=== PATIENT | female | born 1945 | race Caucasian/White ===

== ENCOUNTER 2025-02-26 08:18 | Inpatient (IN) | payer MEDICARE, OTHER ==
[~2025-02-26] VITALS: Ht 165.1 cm; Wt 62.8 kg
[2025-02-26 09:07] LABS: BASOPHILS # (AUTO) 0.1 K/UL (0.0-0.2); BASOPHILS % (AUTO) 0.7 % (0.0-2.0); DIFFERENTIAL COMMENT 1; EOSINOPHILS # (AUTO) 0.2 K/uL (0.0-0.7); EOSINOPHILS % (AUTO) 1.8 % (0.0-7.0); HEMATOCRIT 38.9 % (31.2-41.9); HEMOGLOBIN 12.9 g/dL (10.9-14.3); LYMPHOCYTES # (AUTO) 1.6 K/uL (0.8-4.8); LYMPHOCYTES % (AUTO) 16.3 % (20.5-51.5); MEAN CORPUSCULAR HEMOGLOBIN 30.1 uug (24.7-32.8); MEAN CORPUSCULAR HGB CONC 33 g/dL (32.3-35.6); MEAN CORPUSCULAR VOLUME 90.5 fL (75.5-95.3); MONOCYTES # (AUTO) 0.6 K/uL (0.1-1.30); MONOCYTES % (AUTO) 5.8 % (0.0-11.0); NEUTROPHILS # (AUTO) 7.4 K/uL (1.8-8.9); NEUTROPHILS % (AUTO) 75.4 % (38.5-71.5); PLATELET COUNT (AUTO) 157 K/uL (179-408); RED CELL DISTRIBUTION WIDTH 16.2 % (12.3-17.7); WHITE BLOOD COUNT (AUTO) 9.8 K/uL (3.8-11.8)
[2025-02-26 09:16] LABS: CALCIUM 9.8 mg/dL (8.5-10.1); CARBON DIOXIDE 29 mmol/L (21-32); CHLORIDE 102 mmol/L (98-107); CREATININE 0.4 mg/dL (0.6-1.3); GLUCOSE 95 mg/dL (74-106); POTASSIUM 3.9 mmol/L (3.5-5.1); SODIUM SERUM 139 mmol/L (136-145); UREA NITROGEN, BLOOD 14 mg/dL (7-18)
[2025-02-26 09:22] LABS: ALANINE AMINOTRANSFERASE 13 U/L (14-59); ALBUMIN 2.5 g/dL (3.4-5.0); ALKALINE PHOSPHATASE 73 U/L (50-136); ASPARTATE AMINOTRANSFERASE 13 U/L (15-37); BILIRUBIN,DIRECT 0.2 mg/dL (0.0-0.2); BILIRUBIN,TOTAL 0.6 mg/dL (0.2-1.0); TOTAL PROTEIN, SERUM 6.6 g/dL (6.4-8.2)
[2025-02-26 09:23] LABS: *BILIRUBIN,URIN NEGATIVE (NEGATIVE); *CLARITY,URINE SLIGHTLY CLOUDY (CLEAR); *COLOR,URINE YELLOW (YELLOW); *KETONES,URINE NEGATIVE (NEGATIVE); *PROTEIN,URINE 1+ (NEGATIVE); *UROBILINOGEN,URINE 0.2 E.U./dl (NORMAL); LEUKOCYTE ESTERASE ,URINE 1+ (NEGATIVE); NITRITE, URINE NEGATIVE (NEGATIVE); PH,URINE 5.5 (5.0-8.0); UGLUCOSE TRACE (NEGATIVE)
[2025-02-26 09:24] LABS: *BLOOD, URINE TRACE (NEGATIVE)
[2025-02-26 09:26] LABS: BACTERIA,URINE FEW /HPF (NONE SEEN); RBC,URINE 0-3 /HPF (0-3); SQUAMOUS EPITHELIAL CELL,UR FEW /HPF (NONE SEEN)
[2025-02-26] MEDS ORDERED: CEFTRIAXONE /D5W 50ML IVPB **ER PYXIS IV ONE (09:46)
[2025-02-26] MEDS: CEFTRIAXONE 1 G in IV DEXTROSE 5% 50 ML IV ONE (09:51)
[2025-02-26] MEDS ORDERED: ONDANSETRON 4 MG/2 ML VIAL IV PRN (11:30)
[2025-02-26] MEDS ORDERED: REMEDY ESSENTIAL ZINC PASTE 113 GM TP PRN (11:30)
[2025-02-26] MEDS: IV NS 1000 ML 1,000 ML IV ONE (11:39)
[2025-02-26] MEDS ORDERED: LEVO88TA5 PO (11:46)
[2025-02-26] MEDS ORDERED: ATOR20TA PO (11:47)
[2025-02-26] MEDS ORDERED: LOPE2CAP40 PO (11:47)
[2025-02-26] MEDS ORDERED: PANT20TA2 PO (11:47)
[2025-02-26] MEDS ORDERED: PREG75CA76 PO (11:47)
[2025-02-26] MEDS ORDERED: BACL20TA PO (11:47)
[2025-02-26] MEDS ORDERED: FLUT16SP BNOSTRILS (11:47)
[2025-02-26] MEDS ORDERED: ACET325C7 PO (11:47)
[2025-02-26] MEDS ORDERED: CHOL2000 PO (11:47)
[2025-02-26] MEDS ORDERED: MAG-55 PO (11:47)
[2025-02-26] MEDS ORDERED: TRAM50TA2 PO (11:47)
[2025-02-26] MEDS ORDERED: MAG-5 PO (11:47)
[2025-02-26] MEDS ORDERED: ESCI-9 PO (11:47)
[2025-02-26] MEDS ORDERED: CARV3.122 PO (11:47)
[2025-02-26] MEDS ORDERED: DIGO125T PO (11:47)
[2025-02-26] MEDS ORDERED: ONDA4TAB11 SL (11:47)
[2025-02-26] MEDS ORDERED: CRAN450T9 PO (11:47)
[2025-02-26] MEDS ORDERED: BISM262O28 PO (11:47)
[2025-02-26] MEDS ORDERED: CYAN-10 IM (11:47)
[2025-02-26] MEDS ORDERED: PREG225C7 PO (11:47)
[2025-02-26] MEDS ORDERED: DIPH25CA83 PO (11:47)
[2025-02-26] MEDS ORDERED: MAG30ORA PO (11:47)
[2025-02-26 12:31] VITALS: BP 127/59; TEMP 97.8; O2SAT 95
[2025-02-26] MEDS ORDERED: Medication Not On Formulary EA (Mag Hydrox/Al Hydrox/Simeth (Maalox Advanced Max-Str Sus PO SCH (12:45)
[2025-02-26] MEDS ORDERED: AZITHROMYCIN IV 500 MG in IV DEXTROSE 5% 250 ML IV SCH (13:15)
[2025-02-26] MEDS ORDERED: Medication Not On Formulary EA (Acetaminophen (Tylenol) 650 MG) PO SCH (13:30)
[2025-02-26] MEDS: DOXYCYCLINE HYCLATE IV 100 MG in IV DEXTROSE 5% 100 ML IV SCH (14:25)
[2025-02-26] MEDS ORDERED: ONDANSETRON ODT 4 MG TAB.RAPDIS SL PRN (15:30)
[2025-02-26 16:13] VITALS: BP 122/68; TEMP 97.9; O2SAT 94
[2025-02-26] MEDS ORDERED: Medication Not On Formulary EA (Cranberry Fruit (Cranberry) 450 MG) PO SCH (17:00)
[2025-02-26 19:13] VITALS: BP 144/80; TEMP 98; O2SAT 98
[2025-02-26] MEDS: IV NS 1000 ML 1,000 ML IV PRN (20:05)
[2025-02-26] MEDS: ATORVASTATIN 20 MG TABLET PO SCH (21:03)
[2025-02-26] MEDS: BACLOFEN 20 MG TABLET PO SCH (21:03)
[2025-02-26] MEDS: CARVEDILOL 3.125 MG TABLET PO SCH (21:04)
[2025-02-26] MEDS: ENOXAPARIN SODIUM 40 MG/0.4 ML DISP.SYRIN SQ SCH (21:06)
[2025-02-26] MEDS: FLUTICASONE PROP NASAL SPRAY 16 GM BOTTLE NS SCH (21:11)
[2025-02-27 05:37] VITALS: BP 105/66; TEMP 97.9; O2SAT 100
[2025-02-27] MEDS: LEVOTHYROXINE SODIUM 88 MCG TABLET PO SCH (06:00)
[2025-02-27] MEDS: PANTOPRAZOLE SODIUM 40 MG TABLET.DR PO SCH (06:39)
[2025-02-27 06:50] LABS: BASOPHILS # (AUTO) 0.1 K/UL (0.0-0.2); BASOPHILS % (AUTO) 0.6 % (0.0-2.0); EOSINOPHILS # (AUTO) 0.1 K/uL (0.0-0.7); EOSINOPHILS % (AUTO) 1.2 % (0.0-7.0); HEMATOCRIT 35.5 % (31.2-41.9); LYMPHOCYTES # (AUTO) 1.9 K/uL (0.8-4.8); LYMPHOCYTES % (AUTO) 23.2 % (20.5-51.5); MEAN CORPUSCULAR HEMOGLOBIN 29.9 uug (24.7-32.8); MEAN CORPUSCULAR HGB CONC 34 g/dL (32.3-35.6); MEAN CORPUSCULAR VOLUME 88.3 fL (75.5-95.3); MONOCYTES # (AUTO) 0.7 K/uL (0.1-1.30); MONOCYTES % (AUTO) 8.2 % (0.0-11.0); NEUTROPHILS # (AUTO) 5.6 K/uL (1.8-8.9); NEUTROPHILS % (AUTO) 66.8 % (38.5-71.5); PLATELET COUNT (AUTO) 246 K/uL (179-408); RED BLOOD CELL COUNT(AUTO) 4.02 MIL/uL (3.63-4.92); RED CELL DISTRIBUTION WIDTH 15.7 % (12.3-17.7); WHITE BLOOD COUNT (AUTO) 8.4 K/uL (3.8-11.8)
[2025-02-27 07:02] LABS: CARBON DIOXIDE 28 mmol/L (21-32); CHLORIDE 106 mmol/L (98-107); SODIUM SERUM 142 mmol/L (136-145)
[2025-02-27 07:03] LABS: DIFFERENTIAL COMMENT 1
[2025-02-27 07:40] LABS: CALCIUM 9.5 mg/dL (8.5-10.1); CREATININE 0.2 mg/dL (0.6-1.3); GLUCOSE 109 mg/dL (74-106); MAGNESIUM 1.6 mg/dL (1.8-2.4); PHOSPHOROUS 2.8 mg/dL (2.5-4.9); UREA NITROGEN, BLOOD 12 mg/dL (7-18)
[2025-02-27 07:46] LABS: POTASSIUM 4.4 mmol/L (3.5-5.1)
[2025-02-27 08:42] LABS: THYROID STIMULATING HORMONE 2.953 mIU/mL (0.358-3.740)
[2025-02-27] MEDS: CEFTRIAXONE 1 G in IV DEXTROSE 5% 50 ML IV SCH (08:55)
[2025-02-27] MEDS ORDERED: PREGABALIN 75 MG PO SCH (09:00)
[2025-02-27] MEDS ORDERED: Medication Not On Formulary EA (Cholecalciferol (Vitamin D3) (Vitamin D3) 1 CAP) PO SCH (09:00)
[2025-02-27] MEDS: ESCITALOPRAM OXALATE 10 MG TABLET PO SCH (09:02)
[2025-02-27] MEDS: DIGOXIN 125 MCG TABLET PO SCH (09:02)
[2025-02-27] MEDS: CHOLECALCIFEROL 1,000 UNIT TABLET PO SCH (09:02)
[2025-02-27] MEDS: CLOTRIMAZOLE 1% CREAM 30 GM TUBE TOP SCH (09:03)
[2025-02-27] MEDS: MAGNESIUM OXIDE 400 MG TABLET PO ONE (10:08)
[2025-02-27 12:00] VITALS: BP 118/82; TEMP 98; O2SAT 96
[2025-02-27 16:31] VITALS: BP 135/78; TEMP 97.4; O2SAT 98
[2025-02-27 19:10] VITALS: BP 120/71; TEMP 98; O2SAT 98
[2025-02-27] MEDS: PREGABALIN 25 MG CAPSULE PO SCH (20:26)
[2025-02-27] MEDS: PREGABALIN 100 MG CAPSULE PO SCH (20:26)
[2025-02-27] MEDS: MAGNESIUM HYDROXIDE 30 ML LIQUID UDC PO PRN (20:30)
[2025-02-27] MEDS: ACETAMINOPHEN 325 MG TABLET PO PRN (20:31)
[2025-02-27] MEDS: VALACYCLOVIR HCL 500 MG TABLET PO SCH (20:38)
[2025-02-28 06:00] VITALS: BP 119/57; TEMP 98.2; O2SAT 99
[2025-02-28 07:12] LABS: BASOPHILS % (AUTO) 0.6 % (0.0-2.0); EOSINOPHILS # (AUTO) 0.1 K/uL (0.0-0.7); EOSINOPHILS % (AUTO) 1.2 % (0.0-7.0); HEMATOCRIT 36.1 % (31.2-41.9); HEMOGLOBIN 11.9 g/dL (10.9-14.3); LYMPHOCYTES # (AUTO) 1.8 K/uL (0.8-4.8); LYMPHOCYTES % (AUTO) 29.5 % (20.5-51.5); MEAN CORPUSCULAR HEMOGLOBIN 29.7 uug (24.7-32.8); MEAN CORPUSCULAR HGB CONC 33 g/dL (32.3-35.6); MONOCYTES # (AUTO) 0.6 K/uL (0.1-1.30); MONOCYTES % (AUTO) 10.4 % (0.0-11.0); NEUTROPHILS # (AUTO) 3.5 K/uL (1.8-8.9); NEUTROPHILS % (AUTO) 58.3 % (38.5-71.5); PLATELET COUNT (AUTO) 273 K/uL (179-408); RED BLOOD CELL COUNT(AUTO) 4.01 MIL/uL (3.63-4.92)
[2025-02-28 07:27] LABS: DIFFERENTIAL COMMENT 1
[2025-02-28 07:31] LABS: CALCIUM 9.1 mg/dL (8.5-10.1); CARBON DIOXIDE 26 mmol/L (21-32); CHLORIDE 106 mmol/L (98-107); CREATININE 0.4 mg/dL (0.6-1.3); GLUCOSE 104 mg/dL (74-106); MAGNESIUM 1.6 mg/dL (1.8-2.4); PHOSPHOROUS 2.3 mg/dL (2.5-4.9); POTASSIUM 3.5 mmol/L (3.5-5.1); SODIUM SERUM 142 mmol/L (136-145); UREA NITROGEN, BLOOD 8 mg/dL (7-18)
[2025-02-28 09:20] VITALS: BP 122/66; TEMP 98.2; O2SAT 96
[2025-02-28] MEDS: MAGNESIUM OXIDE 400 MG TABLET PO ONE (11:14)
[2025-02-28 11:57] VITALS: BP 152/86; TEMP 97.8; O2SAT 100
[2025-02-28] MEDS: MAG HYDROX/AL HYDROX/SIMETH 30 ML LIQUID UDC PO PRN (13:02)
[2025-02-28 15:30] VITALS: O2SAT 99
[2025-02-28 16:21] VITALS: BP 147/90; TEMP 98.7; O2SAT 100
[2025-02-28] MEDS: NEUTRA PHOS PACKET PO ONE (17:36)
[2025-02-28 20:34] VITALS: BP 114/68; TEMP 98.8; O2SAT 96
[2025-02-28] MEDS: MEGESTROL ACETATE 400 MG/10 ML LIQUID UDC PO SCH (20:45)
[2025-03-01 00:08] VITALS: O2SAT 98
[2025-03-01] MEDS: BISACODYL 10 MG SUPP.RECT RC PRN (05:12)
[2025-03-01 06:10] VITALS: BP 121/63; TEMP 98.4; O2SAT 99
[2025-03-01 07:03] LABS: BASOPHILS # (AUTO) 0.1 K/UL (0.0-0.2); BASOPHILS % (AUTO) 0.9 % (0.0-2.0); EOSINOPHILS # (AUTO) 0.1 K/uL (0.0-0.7); HEMATOCRIT 39.7 % (31.2-41.9); HEMOGLOBIN 13.2 g/dL (10.9-14.3); LYMPHOCYTES # (AUTO) 1.7 K/uL (0.8-4.8); MEAN CORPUSCULAR HGB CONC 33 g/dL (32.3-35.6); MEAN CORPUSCULAR VOLUME 90.5 fL (75.5-95.3); MONOCYTES # (AUTO) 0.9 K/uL (0.1-1.30); MONOCYTES % (AUTO) 12.8 % (0.0-11.0); NEUTROPHILS # (AUTO) 4.1 K/uL (1.8-8.9); NEUTROPHILS % (AUTO) 60.3 % (38.5-71.5); PLATELET COUNT (AUTO) 256 K/uL (179-408); RED BLOOD CELL COUNT(AUTO) 4.39 MIL/uL (3.63-4.92); WHITE BLOOD COUNT (AUTO) 6.8 K/uL (3.8-11.8)
[2025-03-01 07:13] LABS: DIFFERENTIAL COMMENT 1
[2025-03-01 07:19] LABS: CALCIUM 8.9 mg/dL (8.5-10.1); CARBON DIOXIDE 28 mmol/L (21-32); CHLORIDE 104 mmol/L (98-107); CREATININE 0.3 mg/dL (0.6-1.3); GLUCOSE 93 mg/dL (74-106); MAGNESIUM 1.6 mg/dL (1.8-2.4); PHOSPHOROUS 2.9 mg/dL (2.5-4.9); POTASSIUM 3.5 mmol/L (3.5-5.1); SODIUM SERUM 140 mmol/L (136-145); UREA NITROGEN, BLOOD 4 mg/dL (7-18)
[2025-03-01 11:31] VITALS: BP 109/63; TEMP 98.3; O2SAT 99
[2025-03-01] MEDS: MAGNESIUM OXIDE 400 MG TABLET PO ONE (12:05)
[2025-03-01 15:45] VITALS: BP 98/50; TEMP 98.6; O2SAT 96
[2025-03-01 15:50] VITALS: O2SAT 96
[2025-03-01 19:15] VITALS: BP 133/70; TEMP 98.8; O2SAT 99
[2025-03-02 02:18] VITALS: O2SAT 98
[2025-03-02 04:15] VITALS: BP 110/62; TEMP 98.2; O2SAT 100
[2025-03-02 11:31] VITALS: BP 141/76; TEMP 98.1; O2SAT 100
[2025-03-02 13:15] VITALS: O2SAT 98
[2025-03-02] MEDS ORDERED: MEGE400O4 PO (14:25)
[2025-03-02] MEDS ORDERED: VALA500T PO (14:25)
[2025-03-02] MEDS ORDERED: DOXY100C5 PO (14:25)
[2025-03-02 16:00] VITALS: BP 124/73; TEMP 98.6; O2SAT 99
[2025-03-02 16:38] LABS: BASOPHILS # (AUTO) 0.1 K/UL (0.0-0.2); BASOPHILS % (AUTO) 0.8 % (0.0-2.0); EOSINOPHILS # (AUTO) 0.1 K/uL (0.0-0.7); EOSINOPHILS % (AUTO) 0.8 % (0.0-7.0); HEMATOCRIT 34.3 % (31.2-41.9); HEMOGLOBIN 11.4 g/dL (10.9-14.3); LYMPHOCYTES % (AUTO) 30.4 % (20.5-51.5); MEAN CORPUSCULAR HGB CONC 33 g/dL (32.3-35.6); MEAN CORPUSCULAR VOLUME 90.1 fL (75.5-95.3); MONOCYTES # (AUTO) 0.7 K/uL (0.1-1.30); MONOCYTES % (AUTO) 10.2 % (0.0-11.0); NEUTROPHILS # (AUTO) 3.8 K/uL (1.8-8.9); NEUTROPHILS % (AUTO) 57.8 % (38.5-71.5); PLATELET COUNT (AUTO) 246 K/uL (179-408); RED BLOOD CELL COUNT(AUTO) 3.81 MIL/uL (3.63-4.92); RED CELL DISTRIBUTION WIDTH 16.2 % (12.3-17.7); WHITE BLOOD COUNT (AUTO) 6.5 K/uL (3.8-11.8)
[2025-03-02 16:42] LABS: DIFFERENTIAL COMMENT 1
[2025-03-02 16:49] LABS: CALCIUM 8.3 mg/dL (8.5-10.1); CARBON DIOXIDE 27 mmol/L (21-32); CHLORIDE 110 mmol/L (98-107); CREATININE 0.4 mg/dL (0.6-1.3); GLUCOSE 95 mg/dL (74-106); MAGNESIUM 1.3 mg/dL (1.8-2.4); PHOSPHOROUS 2.4 mg/dL (2.5-4.9); POTASSIUM 3.2 mmol/L (3.5-5.1); SODIUM SERUM 145 mmol/L (136-145); UREA NITROGEN, BLOOD 6 mg/dL (7-18)
== END 2025-03-02 19:41 | disposition hospice, home (50) | DRG 689 ==
LOC: ER 08:18 → MEDSURG3 11:39
PROVIDERS: ADMIT Student in an Organized Health Care Education/Training Program; ATTEND Student in an Organized Health Care Education/Training Program
DX: N39.0 Urinary tract infection, site not specified (principal); J15.9 Unspecified bacterial pneumonia; J98.11 Atelectasis; I50.22 Chronic systolic (congestive) heart failure; E44.0 Moderate protein-calorie malnutrition; D69.6 Thrombocytopenia, unspecified; R62.7 Adult failure to thrive; Z68.23 Body mass index [BMI] 23.0-23.9, adult; Z79.899 Other long term (current) drug therapy; I25.2 Old myocardial infarction; F32.A Depression, unspecified; K57.30 Diverticulosis of large intestine without perforation or abscess without bleeding; K80.20 Calculus of gallbladder without cholecystitis without obstruction; I11.0 Hypertensive heart disease with heart failure; E03.9 Hypothyroidism, unspecified; R26.2 Difficulty in walking, not elsewhere classified; I48.91 Unspecified atrial fibrillation; E83.42 Hypomagnesemia
CPT/HCPCS: 36415; 71045; 73562; 83605; 83735; 84100; 84443; 84484; 85025; 85730; 87040; 87086; A4606; A4663; A6213; C1758; G0378; J0696; J1650; J3490; J3535; J7040; J8999